=== PATIENT | female | born 1985 | race Caucasian/White ===

== ENCOUNTER → 2018-09-05 15:26 | Outpatient (REF) | payer OTHER, SELFPAY | LOC: LAB 15:26 | PROVIDERS: PCP Nurse Practitioner Family; Visit Provider Nurse Practitioner Family | DX: O23.40 Unspecified infection of urinary tract in pregnancy, unspecified trimester (principal) | CPT/HCPCS: 87086 ==

== ENCOUNTER → 2018-10-01 16:54 | Outpatient (REF) | payer BC, SELFPAY ==
[2018-10-01 18:45] LABS: Urine N gonorrhoeae NOT DETECTED
[2018-10-01 19:21] LABS: Urine Chlamydia NOT DETECTED
== END ==
LOC: LAB 16:54
PROVIDERS: PCP Nurse Practitioner Family; Visit Provider Obstetrics & Gynecology
DX: Z34.81 Encounter for supervision of other normal pregnancy, first trimester (principal)
CPT/HCPCS: 87491; 87591

== ENCOUNTER → 2018-10-10 11:11 | Outpatient (CLI) | payer BC, SELFPAY ==
[2018-10-10 11:54] LABS: Add Manual Diff / Slide Review NO; Basophils Absolute Auto 200 /uL (0-100); Basophils Percent Auto 2.9 % (0-2); Eosinophils Absolute Auto 100 /uL (0-450); Hematocrit 37.8 % (36-46); Hemoglobin 12.6 g/dL (12.0-16.0); Lymphocytes Absolute Auto 1200 /uL (1100-4500); Lymphocytes Percent Auto 15.5 % (25-40); Mean Corpuscular HGB Conc 33.4 % (30-36); Mean Corpuscular Hemoglobin 29.2 PG (26-34); Mean Corpuscular Volume 87.4 fL (80-100); Monocytes Absolute Auto 400 /uL (0-900); Neutrophils Absolute Auto 6000 /uL (1500-7000); Neutrophils Percent Auto 75.6 % (50-75); Platelet Count 256 X10^3/uL (150-400); Red Blood Cell Count 4.33 X10^6/uL (4.0-5.2)
[2018-10-10 13:06] LABS: Appearance Urine UA CLEAR; Bilirubin Urine UA NEGATIVE (NEGATIVE); Color Urine UA YELLOW; Glucose Urine UA NEGATIVE (Negative); Ketones Urine UA NEGATIVE (NEGATIVE); Leukocyte Esterase Urine UA NEGATIVE (NEGATIVE); Nitrite Urine UA NEGATIVE (Negative); Occult Blood Urine UA NEGATIVE (Negative); Protein Urine UA NEGATIVE (Negative); Urobilinogen Urine UA 0.2 E.U./dL (0.2)
[2018-10-10 15:53] LABS: Hepatitis B Surface Antigen NEGATIVE s/c (NEGATIVE)
[2018-10-10 16:12] LABS: HIV 1 and 2 Antibody NEGATIVE (NEGATIVE); Hep C Virus Ab w/Reflex Quant NEGATIVE s/c (NEGATIVE)
[2018-10-12 14:18] LABS: RPR Screen Nonreactive (Nonreactive)
== END ==
PROVIDERS: PCP Nurse Practitioner Family; Visit Provider Obstetrics & Gynecology
DX: Z34.81 Encounter for supervision of other normal pregnancy, first trimester (principal)
CPT/HCPCS: 36415; 80055; 81003; 86703; 86787; 86803; 86850; 86900; 86901; 87086

== ENCOUNTER → 2018-12-04 11:53 | Outpatient (CLI) | payer BC, SELFPAY ==
[2018-12-10 13:28] LABS: AFP, Serum 27.8 ng/mL; Calc Gestational Age 17.4; Est Date Determined by US; Maternal Weight 137 lbs; Number of Fetuses 1; Prev Pregnancies Down Syndrome N
== END ==
PROVIDERS: PCP Nurse Practitioner Family; Visit Provider Obstetrics & Gynecology
DX: Z34.82 Encounter for supervision of other normal pregnancy, second trimester (principal)
CPT/HCPCS: 36415; 82105

== ENCOUNTER → 2018-12-25 09:10 | Outpatient (CLI) | payer BC, SELFPAY ==
--- NOTE | 2018-12-25 09:11 | DI.US.S_ITS ---
PROCEDURE: US OB >= 14 WEEKS FETUS INDICATIONS: ANATOMY SURVEY OUTSIDE/PRIOR DATING DATA: Last menstrual period (LMP): 08/04/18. LMP-based estimated date of delivery (DESTINY): 05/11/19. First dating scan (date and location): 10/01/18. Estimated date of delivery (DESTINY) from first dating scan: 05/17/19. TECHNIQUE: Real-time scanning was performed of the fetus, with image documentation and biometric measurements. Endovaginal scanning: No COMPARISON: [facility], , OB <= 14 WEEKS FETUS, 10/30/2018, 10:05. FINDINGS: General: A single living intrauterine gestation is present. Presentation: Vertex. Placenta: Placental position is anterior, without previa. Amniotic fluid index: 13.9 cm, normal range is 5-24 cm. heart rate: 140 beats per minute. Maternal cervical canal: 4.2 cm long. Normal lower limit is 2.5 cm. biometrics: Biparietal diameter: 19 weeks 5 days Head circumference: 19 weeks 5 days Abdominal circumference: 20 weeks 5 days Femur length: 19 weeks 2 days Estimated gestational age from initial scan: 19 weeks 4 days Composite gestational age from present scan: 19 weeks 6 days Estimated weight and percentile: 325 g; 70 percentile Measurement variability for biometric dating: +/- 7 days from 14 weeks to 15 weeks 6 days gestation, +/- 10 days from 16 weeks to 21 weeks 6 days gestation, +/- 2 weeks from 22 weeks to 27 weeks 6 days gestation, +/- 3 weeks for 28 weeks gestation or later. weight reference: 4500 g or EFW >90/95% is considered macrosomia or large for gestational age. EFW <10% is small for gestational age. EFW 5% or less is considered intra-uterine growth restriction. Anatomic survey: Neuro: Ventricles are non-dilated at less than 10 mm. Cisterna magna is normal at 3-11 mm. Cerebellum is normal in size and morphology. Nuchal skin fold: Normal at less than 6 mm between 14-21 weeks gestational age. Face: Nose and lips, facial profile are normal. Spine: No evidence for spina bifida. Heart: 4-chambered heart is present, with normal ventricular outflow tracts. Left ventricular intracardiac foci. Diaphragm: Diaphragm is intact. Stomach: Left-sided stomach is present. Kidneys: No hydronephrosis. Normal is less than 5 mm in 2nd trimester, less than 7 mm in 3rd trimester. Cord: 3-vessel cord has orthotopic insertion. Bladder: Normal in size. Extremities: All 4 extremities identified. IMPRESSION: 1. Single living IUP redemonstrated and interval growth is normal. 2. Echogenic intracardiac focus: 1.4-1.8 fold likelihood of Down syndrome. If isolated finding, consider aneuploidy screening with cell-free DNA. If aneuploidy screen is negative, no further evaluation needed. Anatomic survey otherwise is normal. Dictated by: Antonio Berg [facility] Interpreted: Donell Harding MD on 12/25/2018 at 10:30 Approved by: Donell Harding M.D. on 12/25/2018 at 11:06
== END ==
PROVIDERS: PCP Nurse Practitioner Family; Visit Provider Obstetrics & Gynecology
DX: Z34.82 Encounter for supervision of other normal pregnancy, second trimester (principal); Z3A.19 19 weeks gestation of pregnancy
CPT/HCPCS: 76811

== ENCOUNTER → 2019-01-30 09:30 | Outpatient (CLI) | payer BC, SELFPAY ==
[2019-01-30 11:41] LABS: Hematocrit 36.7 % (36-46); Hemoglobin 12.6 g/dL (12.0-16.0)
[2019-01-30 11:56] LABS: GTT (PREG) 1 Hour PP 50gm Dose 69 mg/dL (76-139)
== END ==
PROVIDERS: PCP Nurse Practitioner Family; Visit Provider Obstetrics & Gynecology
DX: Z34.82 Encounter for supervision of other normal pregnancy, second trimester (principal)
CPT/HCPCS: 36415; 82950; 85014; 85018

== ENCOUNTER → 2019-04-08 17:38 | Outpatient (CLI) | payer BC, SELFPAY ==
[2019-04-09 15:25] LABS: Strep Grp B PCR NEG for Grp B Strep
== END ==
PROVIDERS: PCP Nurse Practitioner Family; Visit Provider Obstetrics & Gynecology
DX: Z36.85 Encounter for antenatal screening for Streptococcus B (principal); Z3A.35 35 weeks gestation of pregnancy
CPT/HCPCS: 87653

== ENCOUNTER 2019-05-01 07:00 | Inpatient (IN) | payer BC, SELFPAY ==
[2019-05-01] MEDS: LACTATED RINGERS 1,000 ML 1000 ML IV (07:55)
[2019-05-01 08:10] VITALS: BP 120/74
--- NOTE | 2019-05-01 08:22 | SUR.OPER ---
Supine on Padded OR bed, head on pillow, safety belt at thigh, arms secured on padded arm boards at <90 degrees abduction. Bump under right buttock. Legs uncrossed with pillow under knees, gel pad to heels, tape over blanket to lower legs.
[2019-05-01] MEDS: CITRIC ACID/SODIUM CITRATE 15 ML SOLUTION 30 ML PO (08:34)
[2019-05-01 08:52] LABS: Add Manual Diff / Slide Review NO; Basophils Absolute Auto 0 /uL (0-100); Basophils Percent Auto 0.4 % (0-2); Eosinophils Absolute Auto 200 /uL (0-450); Eosinophils Percent Auto 1.6 % (2-4); Hematocrit 34.4 % (36-46); Hemoglobin 11.8 g/dL (12.0-16.0); Lymphocytes Absolute Auto 1800 /uL (1100-4500); Lymphocytes Percent Auto 18.5 % (25-40); Mean Corpuscular HGB Conc 34.3 % (30-36); Mean Corpuscular Hemoglobin 29.1 PG (26-34); Mean Corpuscular Volume 84.9 fL (80-100); Monocytes Absolute Auto 600 /uL (0-900); Monocytes Percent Auto 6.2 % (3-14); Neutrophils Absolute Auto 7000 /uL (1500-7000); Neutrophils Percent Auto 73.3 % (50-75); Platelet Count 193 X10^3/uL (150-400); Red Blood Cell Count 4.05 X10^6/uL (4.0-5.2); Red Cell Distribution Width 12.7 % (11.6-14.8); White Blood Cell Count 9.5 X10^3/uL (4.5-11.0)
[2019-05-01] MEDS: LACTATED RINGERS 1,000 ML 100 ML IV ×2 (09:08→15:50)
[2019-05-01] MEDS: CEFAZOLIN 2 GM/100 ML FROZ.PIGGY IV (09:10)
--- NOTE | 2019-05-01 09:46 | SUR.OPER ---
CORD BLOOD AND PLACENTA TO L&D WITH BABY
--- NOTE | 2019-05-01 09:46 | SUR.OPER ---
FHTS PRIOR TO PREP 125 VIABLE MALE BORN 939, APGARS 9&9
[2019-05-01] MEDS: ACETAMINOPHEN IV 1,000 MG/100 ML VIAL 400 MG IV (10:05)
--- NOTE | 2019-05-01 10:07 | SUR.OPER ---
RECEIVED 1000 MG IV ACETOMINOPHEN BY ANESTHESIA AT 1005 UNABLE TO SCAN PATIENT ID
[2019-05-01 10:21] VITALS: BP 96/57; PULSE 76; RESP 22; TEMP 36.2; O2SAT 96
--- NOTE | 2019-05-01 10:25 | PM.PREOP ---
Pre-operative Note Interval Note History & Physical reviewed/Exam performed by Physician: Yes Changes to H&P: No
[2019-05-01 10:26] VITALS: BP 96/56; PULSE 76; RESP 12; O2SAT 93
--- NOTE | 2019-05-01 10:28 | PM.GYNOP.1 ---
Operative Date/Time/Diagnoses Date of procedure: 05/01/19 Time of procedure: 10:29 Pre-op diagnosis: 39 weeks gestation Previous C section x 2 Post-op diagnosis: same Procedure & Clinicians Procedure: Repeat C section Lysis of omental adhesions Indications: 39 weeks gestation Previous C section x 2 Surgeon: Zaida Radford [employer] Production Manager: Navid Bearden Anesthesia Type: Spinal (with Duramorph) Operative Notes Findings: Live male infant Omental to uterine adhesions Normal tubes and ovaries Normal uterus Closure Type: primary Specimen(s): other (Cord bloods, Placenta) Applied: catheter Estimated blood loss (mL): 300 Blood products transfused: none Procedure in detail: After informed consent was obtained, the patient was taken to the operating room where she was placed in the seated position. Spinal anesthesia with Duramorph was administered. The patient was then placed in the dorsal supine position with a leftward tilt. She was prepped and draped in the usual sterile fashion. A timeout was performed. After spinal analgesia was found to be adequate, a Pfannenstiel skin incision was made through the previous incision and carried through to the underlying layer fascia. The fascia was nicked in the midline, and the incision extended bilaterally with the Elizabeth scissors. The superior aspect of the fascial incision was grasped with a Madison clamps, elevated, and the underlying rectus muscles dissected off sharply and bluntly. Attention was then turned to the inferior aspect of this incision which in a similar fashion was grasped with a Kerry clamps, elevated, and the underlying rectus muscles dissected off sharply and bluntly. The rectus muscles were in the midline. The peritoneum was identified, grasped between 2 hemostats, and entered sharply with the Metzenbaum scissors. This incision was extended superiorly and inferiorly with good visualization of the bladder. The bladder blade was inserted. The vesicouterine peritoneum was identified, grasped with the pickup, and entered sharply with the Metzenbaum scissors. This incision was extended bilaterally, and the bladder flap was created digitally. The bladder blade was reinserted. The lower uterine segment was incised in a transverse fashion with the scalpel. Upon entering the amniotic sac there was moderate amount of clear amniotic fluid. The infant's head was delivered without difficulty. The nose and mouth were suctioned with bulb suction. The remainder of the body delivered without difficulty. The cord was double clamped and cut. The was handed off to waiting RN and RT. The placenta was delivered manually. The uterus was cleared of all clots and debris. The uterine incision was repaired with #1 chromic in a running interlocking fashion, and a second layer the same suture was used for an imbricating layer. Hemostasis was achieved. Omental to uterine adhesions were taken down with the Bovie and sharply with Metzenbaum scissors. The tubes and ovaries were examined and were found to be normal. The gutters were cleared of all clots and debris. The bladder flap was reapproximated using 2-0 Vicryl in a running fashion. The parietal peritoneum was closed using 2-0 Vicryl in a running fashion. The fascia was reapproximated using 0 Vicryl in a running fashion. The subcutaneous layer was copiously irrigated with warm normal saline. 5 simple interrupted sutures of 3-0 Vicryl were placed to reapproximate the subcutaneous layer. The skin was closed with 4-0 Biosyn in a subcuticular fashion. Steri-Strips were placed. An Aquacell dressing was placed. The uterus was expressed of a small amount of old blood. Sponge, lap, and instrument counts were correct x-2. The patient tolerated the procedure well, and was taken to PACU in stable condition. Complications: none Post-operative Condition: stable Disposition: PACU Plan for aftercare: To Center after PACU
[2019-05-01 10:31] VITALS: BP 95/60; PULSE 65; RESP 15; O2SAT 96
[2019-05-01 10:41] VITALS: BP 103/68; PULSE 66; RESP 12; O2SAT 96
--- NOTE | 2019-05-01 11:09 | SUR.PHASEI ---
1042 Report called to Sherry.
--- NOTE | 2019-05-01 11:09 | SUR.PHASEI ---
IV tubing changed prior to discharge
[2019-05-01] MEDS: NALBUPHINE 20 MG/ML AMPUL 5 MG IV (12:44)
[2019-05-01] MEDS: KETOROLAC 30 MG/ML VIAL IV ×2 (15:48→23:17)
[2019-05-02] MEDS: KETOROLAC 30 MG/ML VIAL IV (04:50)
[2019-05-02 05:48] LABS: Hematocrit 32.9 % (36-46); Hemoglobin 11.2 g/dL (12.0-16.0)
[2019-05-02] MEDS: IBUPROFEN 600 MG TABLET PO (19:13)
[2019-05-02] MEDS: ACETAMINOPHEN 325 MG TABLET 650 MG PO (19:13)
[2019-05-03] MEDS: IBUPROFEN 600 MG TABLET PO ×2 (00:56→06:55)
[2019-05-03] MEDS: ACETAMINOPHEN 325 MG TABLET 650 MG PO ×2 (00:56→06:55)
[2019-05-03 08:00] VITALS: BP 119/81; PULSE 79; RESP 17; TEMP 37.2
[2019-05-03] MEDS: DOCUSATE 250 MG CAPSULE PO (09:11)
[2019-05-03] MEDS: PRENATAL VIT,CALC/IRON/FOLIC 1 TABLET 1 TAB PO (09:11)
--- NOTE | 2019-05-03 10:25 | PM.OBPN.1 ---
Subjective - OB Subjective Patient comments: no complaints and pain well controlled baby status: doing well and nursing well feeding status: exclusively breast feeding Date Patient Seen: 05/02/19 Time Patient Seen: 08:45 Exam Vital Signs (past 8 hours): Generally: Patient is sitting up in bed, nursing infant, no acute distress Lungs: Clear to auscultation bilaterally Cardiovascular: Regular rate and rhythm Fundal height: U -2 Incision: Clean dry and intact with Aquacel dressing Extremities: Negative Homans, no edema Objective Labs Result Diagrams: 05/02/19 04:50 Assessment & Plan Plan day: 1 plan OB: routine postop care Time Spent With Patient Time: Total time spent is greater than 50% in coordination of care (as documented) at patient's floor/unit and/or counseling patient: Time with patient: 15-24 minutes
--- NOTE | 2019-05-03 10:27 | PM.OBDS.1 ---
Discharge Providers Provider Date of admission: 05/01/19 07:00 Discharge Date: 05/03/19 Primary care physician: LEBRON Raza Consults: 05/01/19 11:05 Consult to Accounting System Expert Routine Comment: Discharge provider: Zaida Radford MD Summary Hospital Course Date Patient Seen: 05/03/19 Time Patient Seen: 10:27 Hospital Course: Patient is a 33-year-old 3 para 3 post op day # 2 status post repeat low-transverse section She had no complications with the procedure or her postoperative course. Peripartum Data Episiotomy description: None Procedures: Repeat low-transverse section Spinal anesthesia complications: none Status at Discharge Cognitive/behavioral status at discharge: oriented Functional status at discharge: independent ambulation Overall status at discharge: patient is progressing back to baseline Time Spent with Patient Time attestation: Total time spent providing and/or coordinating discharge services: Time spent: Less than 30 minutes Objective Labs Result Diagrams: 05/02/19 04:50 Discharge Plan Discharge Med Rec/Prescriptions Prescriptions: No Action No Known Home Medications RF: 0 Follow up/Referrals: Delia Cid ARNP [Primary Care Provider] - Discharge Orders: Discharge (Order); Ordered 05/03/19 Ordered By: Zaida Radford Discharge Data Primary Care Provider: Delia Cid
== END 2019-05-03 11:40 | disposition home or self-care (01) | DRG 788 ==
PROVIDERS: Admitting Provider Obstetrics & Gynecology; PCP Nurse Practitioner Family; Visit Provider Obstetrics & Gynecology
PROC: 10D00Z1 Extraction of Products of Conception, Low, Open Approach (ICD-10-PCS; CPT 59514; principal; 2019-05-01 09:00)
DX: O34.219 Maternal care for unspecified type scar from previous cesarean delivery (principal); Z3A.39 39 weeks gestation of pregnancy; Z37.0 Single live birth; K66.0 Peritoneal adhesions (postprocedural) (postinfection)
CPT/HCPCS: 36415; 59050; 59510; 59514; 85014; 85018; 85025; 86850; 86900; 86901; G0379; J0131; J0171; J0690; J1885; J2274; J2300; J2405; J2590; J2765

== ENCOUNTER → 2020-09-21 15:53 | Outpatient (CLI) | payer BC, SELFPAY ==
[2020-09-24 04:14] LABS: Chlamydia trachomatis NAA Negative (Negative); Neisseria gonorrhoeae NAA Negative (Negative)
== END ==
PROVIDERS: Visit Provider Obstetrics & Gynecology
DX: Z34.81 Encounter for supervision of other normal pregnancy, first trimester (principal)
CPT/HCPCS: 87086; 87491; 87591

== ENCOUNTER → 2020-10-12 08:21 | Outpatient (CLI) | payer BC, SELFPAY | PROVIDERS: Referring Provider Obstetrics & Gynecology; Visit Provider Obstetrics & Gynecology | DX: Q93.81 Velo-cardio-facial syndrome (principal); Z36.0 Encounter for antenatal screening for chromosomal anomalies | CPT/HCPCS: 36415; 81420 ==

== ENCOUNTER → 2020-10-26 08:40 | Outpatient (CLI) | payer BC, SELFPAY ==
[2020-10-26 09:54] LABS: Add Manual Diff / Slide Review NO; Basophils Absolute Auto 0 /uL (0-100); Basophils Percent Auto 0.6 % (0-2); Eosinophils Absolute Auto 100 /uL (0-450); Eosinophils Percent Auto 1.5 % (2-4); Hematocrit 39.4 % (36-46); Hemoglobin 13.7 g/dL (12.0-16.0); Lymphocytes Absolute Auto 1500 /uL (1100-4500); Lymphocytes Percent Auto 18.3 % (25-40); Mean Corpuscular HGB Conc 34.7 % (30-36); Mean Corpuscular Hemoglobin 30.7 PG (26-34); Mean Corpuscular Volume 88.5 fL (80-100); Monocytes Absolute Auto 400 /uL (0-900); Neutrophils Absolute Auto 6100 /uL (1500-7000); Neutrophils Percent Auto 74.6 % (50-75); Platelet Count 233 X10^3/uL (150-400); Red Blood Cell Count 4.45 X10^6/uL (4.0-5.2); Red Cell Distribution Width 12.9 % (11.6-14.8); White Blood Cell Count 8.2 X10^3/uL (4.5-11.0)
[2020-10-26 11:22] LABS: Hepatitis B Surface Antigen NEGATIVE s/c (NEGATIVE); Rubella Antibody IgG 83.3 IU/mL (>15)
[2020-10-26 12:01] LABS: HIV 1 & 2 Ab/Ag 4th Gen Combo NEGATIVE (NEGATIVE); Hep C Virus Ab w/Reflex Quant NEGATIVE s/c (NEGATIVE)
[2020-10-27 07:34] LABS: Varicella IgG Antibody 520 index (Immune >165)
[2020-10-27 08:30] LABS: RPR Screen Non Reactive (Non Reactive)
== END ==
PROVIDERS: Referring Provider Obstetrics & Gynecology; Visit Provider Obstetrics & Gynecology
DX: Q93.81 Velo-cardio-facial syndrome (principal); Z36.0 Encounter for antenatal screening for chromosomal anomalies
CPT/HCPCS: 36415; 80055; 81420; 86787; 86803; 86850; 86900; 86901; 87389

== ENCOUNTER → 2020-11-29 10:22 | Outpatient (CLI) | payer BC, SELFPAY ==
[2020-12-01 22:02] LABS: AFP Value 29.6 ng/mL (.); Gest Age on Col Date 17.3 weeks (.); Gestational Age EDD (.); Insulin Dep Diabetes No (.); OSBR Risk 1IN 10000 (.); Results Report (.); Test Results *Screen Negative* (.)
== END ==
PROVIDERS: Referring Provider Obstetrics & Gynecology; Visit Provider Obstetrics & Gynecology
DX: Z34.82 Encounter for supervision of other normal pregnancy, second trimester (principal); Z3A.17 17 weeks gestation of pregnancy
CPT/HCPCS: 36415; 82105

== ENCOUNTER → 2020-12-22 10:11 | Outpatient (CLI) | payer BC, SELFPAY ==
--- NOTE | 2020-12-22 10:11 | DI.US.S_ITS ---
PROCEDURE: US OB >= 14 WEEKS FETUS INDICATIONS: ANATOMY OUTSIDE/PRIOR DATING DATA: Last menstrual period (LMP): 07/22/20 LMP-based estimated date of delivery (DESTINY): 04/28/20 First dating scan (date and location): 09/21/20 Estimated date of delivery (DESTINY) from first dating scan: 05/07/21 TECHNIQUE: Real-time scanning was performed of the fetus, with image documentation and biometric measurements. Endovaginal scanning: Not performed COMPARISON: [facility], , OB <= 14 WEEKS FETUS, 11/03/2020, 9:21. [facility], PELVIC COMPLETE, 10/06/2020, 12:02. [facility], OB >= 14 WEEKS FETUS, 09/21/2020, 15:24. FINDINGS: General: A single living intrauterine gestation is present. Presentation: Breech. Placenta: Placental position is posterior/fundal , without previa. Amniotic fluid index: 12.8 cm, normal range is 5-24 cm. heart rate: 149 beats per minute. Maternal cervical canal: 3.3 cm long. Normal lower limit is 2.5 cm. biometrics: Biparietal diameter: 4.6 cm, 19 weeks 5 days Head circumference: 17.5 cm, 20 weeks 0 days Abdominal circumference: 16.3 cm, 21 weeks 3 days Femur length: 3.4 cm, 20 weeks 5 days Estimated gestational age from initial scan: 20 weeks 4 days Composite gestational age from present scan: 20 weeks 3 days Estimated weight and percentile: 384 g, 63rd percentile Measurement variability for biometric dating: +/- 7 days from 14 weeks to 15 weeks 6 days gestation, +/- 10 days from 16 weeks to 21 weeks 6 days gestation, +/- 2 weeks from 22 weeks to 27 weeks 6 days gestation, +/- 3 weeks for 28 weeks gestation or later. weight reference: 4500 g or EFW >90/95% is considered macrosomia or large for gestational age. EFW <10% is small for gestational age. EFW 5% or less is considered intra-uterine growth restriction. Anatomic survey: Neuro: Ventricles are non-dilated at less than 10 mm. Cisterna magna is normal at 3-11 mm. Cerebellum is normal in size and morphology. Nuchal skin fold: Normal at less than 6 mm between 14-21 weeks gestational age. Face: Nose and lips, facial profile are normal. Spine: No evidence for spina bifida. Heart: 4-chambered heart is present, with normal ventricular outflow tracts. Diaphragm: Diaphragm is intact. Stomach: Left-sided stomach is present. Kidneys: No hydronephrosis. Normal is less than 5 mm in 2nd trimester, less than 7 mm in 3rd trimester. Cord: 3-vessel cord has orthotopic insertion. Bladder: Normal in size. Extremities: All 4 extremities identified. IMPRESSION: Single living intrauterine fetus in breech presentation. Expected interval growth. Normal anatomic survey Approved by: Subhash Mello M.D. on 12/22/2020 at 16:09
== END ==
PROVIDERS: Referring Provider Obstetrics & Gynecology; Visit Provider Obstetrics & Gynecology
DX: Z34.82 Encounter for supervision of other normal pregnancy, second trimester (principal); Z3A.20 20 weeks gestation of pregnancy
CPT/HCPCS: 76811

== ENCOUNTER → 2021-01-25 15:54 | Outpatient (CLI) | payer BC, SELFPAY ==
[2021-01-25 21:51] LABS: Urine N gonorrhoeae NOT DETECTED
[2021-01-25 22:19] LABS: Urine Chlamydia NOT DETECTED
== END ==
PROVIDERS: Visit Provider Obstetrics & Gynecology
DX: Z34.82 Encounter for supervision of other normal pregnancy, second trimester (principal); Z3A.25 25 weeks gestation of pregnancy
CPT/HCPCS: 87491; 87591

== ENCOUNTER → 2021-02-09 07:12 | Outpatient (CLI) | payer BC, SELFPAY ==
[2021-02-09 09:40] LABS: Hematocrit 38.4 % (36-46); Hemoglobin 13.1 g/dL (12.0-16.0)
[2021-02-09 10:01] LABS: GTT (PREG) 1 Hour PP 50gm Dose 114 mg/dL (76-139)
== END ==
PROVIDERS: Referring Provider Obstetrics & Gynecology; Visit Provider Obstetrics & Gynecology
DX: Z34.82 Encounter for supervision of other normal pregnancy, second trimester (principal); Z3A.21 21 weeks gestation of pregnancy
CPT/HCPCS: 36415; 82950; 85014; 85018

== ENCOUNTER 2021-03-28 12:16 | Outpatient (CLI) | payer BC, SELFPAY | END 2021-03-28 13:22 | disposition home or self-care (01) | LOC: LABOR 12:47 → OB 03-29 06:57 | PROVIDERS: Referring Provider Obstetrics & Gynecology; Visit Provider Obstetrics & Gynecology | DX: O36.8130 Decreased fetal movements, third trimester, not applicable or unspecified (principal); Z3A.34 34 weeks gestation of pregnancy | CPT/HCPCS: 59025; G0378; G0379 ==

== ENCOUNTER 2021-03-30 16:11 | Outpatient (CLI) | payer BC, SELFPAY | END 2021-03-30 17:05 | disposition home or self-care (01) | LOC: OB 04-01 07:06 | PROVIDERS: Referring Provider Obstetrics & Gynecology; Visit Provider Obstetrics & Gynecology | DX: O47.03 False labor before 37 completed weeks of gestation, third trimester (principal); Z3A.34 34 weeks gestation of pregnancy | CPT/HCPCS: 59025; G0378; G0379 ==

== ENCOUNTER → 2021-04-18 09:47 | Outpatient (CLI) | payer BC, SELFPAY ==
[2021-04-19 11:21] LABS: Strep Grp B PCR NEG for Grp B Strep
== END ==
PROVIDERS: Visit Provider Obstetrics & Gynecology
DX: Z34.83 Encounter for supervision of other normal pregnancy, third trimester (principal); Z3A.37 37 weeks gestation of pregnancy
CPT/HCPCS: 87653

== ENCOUNTER → 2021-05-04 11:36 | Outpatient (CLI) | payer BC, SELFPAY ==
[2021-05-04 12:30] LABS: COVID19 -Nasal RAPID Negative (Negative)
== END ==
PROVIDERS: Visit Provider Specialist
DX: Z01.812 Encounter for preprocedural laboratory examination (principal); Z20.822 Contact with and (suspected) exposure to COVID-19
CPT/HCPCS: 87635

== ENCOUNTER 2021-05-05 05:51 | Inpatient (IN) | payer BC, SELFPAY ==
[2021-05-05] VITALS (7 sets, daily range): BP systolic 98–111; BP diastolic 51–72; PULSE 58–68; RESP 11–13; TEMP 36.1–36.8; O2SAT 96–98
--- NOTE | 2021-05-05 | PATH_ITS ---
[facility] Accession Number: [id number] . 01 Material submitted: . thigh - LEFT THIGH LESION . 01 Clinical history: . REPEAT . 01 Diagnosis: Left Thigh, Excision: Irritated dermatofibroma. MRV 05/09/2021 1623 Local . 01 Electronically signed: . Leela Gilman MD, Dermatopathologist NPI- [id number] . 01 Gross description: . Received in formalin and labeled with left thigh lesion is one piece of a segment of skin measuring 1.0 x 0.8 x 0.3 cm. The segment is inked, serially sectioned into five slices, and entirely submitted in cassettes A1 and A2, with tips in cassette A1 and the remaining three slices in cassette A2. ([id number]) /MRV 05/06/2021 0936 Local . 01 Pathologist provided ICD-10: D23.9 . 01 CPT . 027357 Performed at: 01 [facility] [address] [place] [address] [address], [place], [place] [id number] MD Barrie Colin MD Phone: [phone]
[2021-05-05] MEDS: LACTATED RINGERS 1,000 ML 100 ML IV ×3 (06:30→10:12)
--- NOTE | 2021-05-05 07:43 | PM.HP.1 ---
History of Present Illness History of Present Illness Date Patient Seen: 05/05/21 Time Patient Seen: 07:43 Chief complaint: REPEAT Narrative: Patient is a 35-year-old 5 para 3 who presents for a repeat section at 39 weeks gestation. She has had an uncomplicated . Patient History Medical History (Updated 09/13/20 @ 10:30 by Saima Elder RN) HSV-1 (herpes simplex virus 1) infection Mammogram normal Migraine PIH ( induced hypertension) (~2010) Surgical History (Updated 09/13/20 @ 10:30 by Saima Elder RN) S/P appendectomy S/P knee surgery S/P repeat low transverse (~2018) S/P tonsillectomy and adenoidectomy Status post delivery (~2010) Status post repeat low transverse section (~2012) Family & Social History Family History (Updated 09/13/20 @ 13:21 by Saima Elder RN) Mother Autoimmune disorder Father Hypertension Grandmother Hypertension Sepsis Grandfather Hypertension Diabetes mellitus Myocardial infarction Grandmother Alzheimer disease Grandfather Hypertension Myocardial infarction Family/Other Breast cancer Family/Other Hypothyroid Sister PCOS (polycystic ovarian syndrome) Social History: household members spouse,children lives independently Yes Tobacco & Substance use: Smoking Status Never smoker alcohol intake former Meds Home Medications and Allergies Home Medications Medication Instructions Recorded Confirmed Type prenat.vits,cassie,oqw-gfmb-yiyqt 1 tab PO DAILY 09/13/20 04/26/21 History Allergies Allergy/AdvReac Type Severity Reaction Status Date / Time No Known Drug Allergies Allergy Verified 04/26/21 13:59 Exam Vital Signs (past 8 hours): - 05/05/21 06:15 Blood Pressure 111/72 Narrative Exam Narrative: HEENT: No thyromegaly, no anterior cervical or supraclavicular lymphadenopathy. Lungs:Clear to auscultation bilaterally, no wheezes. Cardiovascular: Regular rate and rhythm, no murmurs, rubs, or gallops. Abdomen: Well-healed Pfannenstiel scars. No hepatosplenomegaly. No masses palpable. Extremities: No edema Assessment & Plan Assessment & Plan narrative: Assessment: 35-year-old 5 para 3 at 39 weeks gestation with 3 prior sections Plan: Repeat low-transverse section COVID-19 COVID-19 status: Negative Result date/Date tested (Pos, Neg/Pending): 05/04/21 Time Spent With Patient Time with patient: less than 30 minutes Critical Care time: I spent a total of [] minutes of critical care time on this patient's care today; this time is exclusive of procedural time.
--- NOTE | 2021-05-05 07:45 | PM.PREOP ---
Pre-operative Note COVID-19 COVID-19 status: Negative Result date/Date tested (Pos, Neg/Pending): 05/04/21 Interval Note History & Physical reviewed/Exam performed by Physician: Yes Changes to H&P: No H&P completed within 30 days and has changed as indicated here:: 05/05/21
[2021-05-05] MEDS: CEFAZOLIN 1 GM VIAL 2 GM IV (08:10)
--- NOTE | 2021-05-05 08:31 | SUR.OPER ---
Viable female delivered by section at 08:24. Cord blood vials x2 and placenta sent with L&D RN.
--- NOTE | 2021-05-05 09:17 | P.OP_ITS ---
Operative Date/Time/Diagnoses Date of procedure: 05/05/21 Time of procedure: 09:17 Pre-op diagnosis: Three previous C-sections 39 weeks gestation Left thigh lesion Post-op diagnosis: same Procedure & Clinicians Procedure: Repeat low-transverse section Excision of left thigh lesion Same procedure as scheduled: Yes Indications: 39 weeks gestation Three previous sections Left thigh lesion Surgeon: Zaida Radford Programming Development Project Manager: Hector Ochoa Anesthesia Type: Spinal (With Duramorph) Operative Notes Findings: Live female in the LANA presentation Normal uterus, tubes, and ovaries 5 mm raised erythematous left thigh lesion Closure Type: primary Specimen(s): cord blood, placenta and other (Left thigh lesion) Intraoperative meds administered: Duramorph, Ketorolac and Pitocin Applied: Catheter Estimated Blood Loss (mL): 300 Blood products transfused: none Procedure in detail: The patient was taken to the operating room where she was placed in the seated position. Spinal anesthesia with Duramorph was administered. The patient was then placed in the dorsal supine position with a leftward tilt. She was prepped and draped in the usual sterile fashion. A timeout was performed. After spinal analgesia was found to be adequate, a Pfannenstiel skin incision was made through the previous incision and carried through to the underlying layer fascia. The fascia was nicked in the midline, and the incision extended bilaterally with the Elizabeth scissors. The superior aspect of the fascial incision was grasped with a Kerry clamps, elevated, and the underlying rectus muscles dissected off sharply and bluntly. Attention was then turned to the inferior aspect of this incision which in a similar fashion was grasped with a Kerry clamps, elevated, and the underlying rectus muscles dissected off sharply and bluntly. The rectus muscles were in the midline. The peritoneum was identified, grasped between 2 hemostats, and entered sharply with the Metzenbaum scissors. This incision was extended superiorly and inferiorly with good visualization of the bladder. The bladder blade was inserted. The vesicouterine peritoneum was identified, grasped with the pickup, and entered sharply with the Metzenbaum scissors. This incision was extended bilaterally, and the bladder flap was created digitally. The bladder blade was reinserted. The lower uterine segment was incised in a transverse fashion with the scalpel. Upon entering the amniotic sac there was moderate amount of clear amniotic fluid. The 's head was delivered with vacuum assistance. The nose and mouth were suctioned with bulb suction. The remainder of the body delivered without difficulty. The cord was double clamped and cut. The was handed off to waiting RN and RT. The placenta was delivered manually. The uterus was cleared of all clots and debris. The uterine incision was repaired with #1 chromic in a running interlocking fashion, and a second layer the same suture was used for an imbricating layer. Hemostasis was achieved. The tubes and ovaries were examined and were found to be normal. The gutters were cleared of all clots and debris. The bladder flap was reappr oximated using 2-0 Vicryl in a running fashion. The parietal peritoneum was closed using 2-0 Vicryl in a running fashion. The fascia was reapproximated using 0 Vicryl in a running fashion. The subcutaneous layer was copiously irrigated with warm normal saline. 5 simple interrupted sutures of 3-0 Vicryl were placed to reapproximate the subcutaneous layer. The skin was closed with 4-0 undyed Vicryl in a subcuticular fashion. Steri-Strips were placed. An Aquacell dressing was placed. The uterus was expressed of a small amount of old blood. Sponge, lap, and instrument counts were correct x-2. The patient tolerated the procedure well, and was taken to PACU in stable condition. Complications: none [place] Baby 1: Infant Gender: Female Presentation: vertex Position: Left Occiput Anterior Placental Delivery Description: Spontaneous Cord Vessel Description: 3 Vessels and Clamped/Cut score (1 min): 8 score (5 min): 9 weight: 7 lb 9 oz Post-operative Condition: stable Disposition: PACU Aftercare: routine postop
--- NOTE | 2021-05-05 09:37 | SUR.PHASEI ---
0932 Patient transferred to [facility] in bed by Adeola RAWLS. Fundal check prior to transferred. Jeanie pad not changed so [facility] Rn can see drainage amount. Pt tolerating ice chips. Report called to Candice RAWLS
[2021-05-05 09:45] LABS: Add Manual Diff / Slide Review NO; Basophils Absolute Auto 0 /uL (0-100); Basophils Percent Auto 0.5 % (0-2); Eosinophils Absolute Auto 100 /uL (0-450); Eosinophils Percent Auto 1.2 % (2-4); Hemoglobin 13.3 g/dL (12.0-16.0); Lymphocytes Absolute Auto 1700 /uL (1100-4500); Mean Corpuscular HGB Conc 33.2 % (30-36); Mean Corpuscular Hemoglobin 30.2 PG (26-34); Monocytes Absolute Auto 600 /uL (0-900); Monocytes Percent Auto 5.4 % (3-14); Neutrophils Absolute Auto 8300 /uL (1500-7000); Neutrophils Percent Auto 76.9 % (50-75); Platelet Count 190 X10^3/uL (150-400); Red Cell Distribution Width 13.3 % (11.6-14.8); White Blood Cell Count 10.8 X10^3/uL (4.5-11.0)
[2021-05-05] MEDS: KETOROLAC 30 MG/ML VIAL IV ×2 (14:51→20:45)
[2021-05-06] MEDS: ACETAMINOPHEN 325 MG TABLET 650 MG PO ×2 (03:31→10:05)
[2021-05-06] MEDS: KETOROLAC 30 MG/ML VIAL IV (03:31)
[2021-05-06 07:06] LABS: Hematocrit 39.4 % (36-46)
[2021-05-06] MEDS: DOCUSATE 100 MG CAPSULE 200 MG PO (10:06)
[2021-05-06] MEDS: IBUPROFEN 600 MG TABLET PO ×2 (10:06→16:11)
[2021-05-06] MEDS: PRENATAL VIT,CALC/IRON/FOLIC 1 TABLET 1 TAB PO (10:06)
--- NOTE | 2021-05-06 20:01 | PM.OBPN.1 ---
Subjective - OB Subjective Patient comments: no complaints, pain well controlled, tolerating diet and flatus present baby status: doing well and nursing well [place] feeding status: exclusively breast feeding Date Patient Seen: 05/06/21 Time Patient Seen: 13:30 Exam Vital Signs (past 8 hours): Oxygen Delivery Method Room Air Narrative Exam Narrative: Generally: A well-developed, well-nourished female sitting up in bed Lungs: CTA bilat CV: RRR ABD: fundus firm U-1 Incision: CDI with Aquacel Ext: no edema, neg Isi's Objective Labs Result Diagrams: 05/06/21 06:35 Labs: Laboratory Results - last 24 hr 05/06/21 06:35 Hgb 13.0 Hct 39.4 Assessment & Plan Plan day: 1 plan OB: routine postop care Time Spent With Patient Time: Total time spent is greater than 50% in coordination of care (as documented) at patient's floor/unit and/or counseling patient: Time with patient: less than 15 minutes
[2021-05-07] MEDS: LANOLIN OINT 7 GM 1 APPLIC TOP (00:23)
[2021-05-07] MEDS: IBUPROFEN 600 MG TABLET PO (00:24)
[2021-05-07 08:59] VITALS: BP 110/80; PULSE 80; RESP 17; TEMP 37
--- NOTE | 2021-05-07 09:24 | P.DS_ITS ---
Discharge Providers Provider Date of admission: 05/05/21 05:51 Discharge Date: 05/07/21 Primary care physician: Doctor Baldomero MD Consults: 05/05/21 09:32 Consult to Fuel Cell Repairer Routine Comment: Discharge provider: Elisha Jarrett MD Summary Hospital Course Date Patient Seen: 05/07/21 Time Patient Seen: 09:24 Diagnoses: 39 week gestation for repeat section Hospital Course: Patient underwent a repeat low-transverse section on 05/05/2021. Patient is urinating well, ambulatory, tolerating regular diet, passing gas, pain is under control. Patient is Without difficulty. No headaches, scotomata, epigastric pain. Peripartum Data Infant Delivery Method: Section ( 4Th repeat) complications: none [place] 1: Gender: Female Disposition of : home Discharge Diagnosis (1) Delivery by section of full-term infant: Status: Acute Status at Discharge Cognitive/behavioral status at discharge: oriented Functional status at discharge: independent ambulation Overall status at discharge: patient is progressing back to baseline Time Spent with Patient Time attestation: Total time spent providing and/or coordinating discharge services: Time spent: Less than 30 minutes Objective Labs Result Diagrams: 05/06/21 06:35 Exam Vital Signs (past 8 hours): - 05/07/21 08:59 Temperature 98.6 F Pulse Rate 80 Respiratory Rate 17 Blood Pressure 110/80 Oxygen Delivery Method Room Air Narrative Exam Narrative: Abdomen is soft, nontender. Uterus is firm, at U, nontender. Dressing is clean, dry, intact. Normal lochia. Extremities without edema and nontender. Patient is AB-positive, rubella immune. The patient received Tdap in the 3rd trimester Discharge Plan Discharge Plan Patient Disposition: Home Provider Discharge Comment: Call with fever, chills, or redness or drainage around the incision Call with bleeding more than a pad in an hour Tylenol 650 mg every 6 hours as needed Ibuprofen 600 mg every 6 hours as needed Discharge orders & Medications Prescriptions: New oxycodone 5 mg tablet 5 mg PO Q4H PRN (Reason: pain) Qty: 20 RF: 0 Continued prenat.vits,cassie,[id number] Tablet 1 tab PO DAILY RF: 0 Follow up/Referrals: Zaida Radford MD [Physician] - 1 Week (Please call Dr. Karen dumont on Wednesday 05/09 to schedule a one week aquacel dresing removal. ) Diet/Activity/Treatments Diet: Regular Activity: No heavy lifting Skin/Wound/Dressing Care Report to your healthcare provider any signs of infection, such as:: chills, fever, increased pain, unusual drainage and unusual redness Dressing: Do not remove Visit Report/Discharge Packet Instructions: DI for , DI for Prescription Opioid Use Discharge Data Primary Care Provider: Miscellaneous,Doctor
== END 2021-05-07 10:20 | disposition home or self-care (01) | DRG 788 ==
PROVIDERS: Admitting Provider Obstetrics & Gynecology; Referring Provider Obstetrics & Gynecology; Visit Provider Obstetrics & Gynecology
PROC: 10D00Z1 Extraction of Products of Conception, Low, Open Approach (ICD-10-PCS; CPT 59514; principal; 2021-05-05 07:45)
DX: O34.211 Maternal care for low transverse scar from previous cesarean delivery (principal); Z3A.39 39 weeks gestation of pregnancy; Z37.0 Single live birth; D23.72 Other benign neoplasm of skin of left lower limb, including hip
CPT/HCPCS: 36415; 59050; 59510; 59514; 85014; 85018; 85025; J0690; J1885; J2274; J2590

== ENCOUNTER → 2021-05-24 12:10 | Outpatient (CLI) | payer BC, SELFPAY ==
--- NOTE | 2021-05-24 | DI.RAD.S_ITS ---
PROCEDURE: XR ELBOW LT MIN 3V INDICATIONS: LEFT ELBOW TRAUMA TECHNIQUE: 3 views of the elbow were acquired. COMPARISON: None. FINDINGS: Bones: No fractures or dislocations. No suspicious bony lesions. Soft tissues: No elbow joint effusion. No suspicious soft tissue calcifications. IMPRESSION: Left elbow without acute fracture or dislocation. If there is persistent clinical concern for occult fracture given adequate mechanism of injury, consider repeat imaging in 10-14 days. Dictated by: Dimitri Tompkins M.D. on 05/24/2021 at 15:12 Approved by: Dimitri Tompkins M.D. on 05/24/2021 at 15:13
== END ==
PROVIDERS: Referring Provider Family Medicine; Visit Provider Family Medicine
DX: S59.902A Unspecified injury of left elbow, initial encounter (principal); X58.XXXA Exposure to other specified factors, initial encounter
CPT/HCPCS: 73080

== ENCOUNTER → 2024-08-06 12:35 | Outpatient (CLI) | payer OTHER, SELFPAY | PROVIDERS: Visit Provider Physician Assistant | DX: J02.9 Acute pharyngitis, unspecified (principal) | CPT/HCPCS: 87070 ==

== ENCOUNTER 2024-08-10 19:00 | Emergency (ER) | payer OTHER, SELFPAY ==
[2024-08-10 19:16] VITALS: BP 122/77; PULSE 78; RESP 14; TEMP 36.6; O2SAT 99; BMI 24.0
--- NOTE | 2024-08-10 19:36 | ED.WOUNDLAC ---
HPI - Wound/Laceration General Chief Complaint: Wound/Laceration Stated Complaint: finger laceration Time Seen by Provider: 08/10/24 19:29 Source: patient Mode of arrival: Family Vehicle History of Present Illness HPI narrative: 38-year-old female who is right-hand dominant who is here for evaluation of a cut to her right index finger. It occurred on a can just prior to arrival. She states she tried to stop the bleeding at home but he was unable to do so. Related Data Home Medications Medication Instructions Recorded Confirmed prenat.vits,cassie,[id number] 1 tab PO DAILY 09/13/20 08/06/24 Previous Rx's Medication Instructions Recorded citalopram 10 mg tablet (Celexa) 10 mg PO DAILY #30 tabs 05/12/21 hydroxyzine HCl 25 mg tablet 25 mg PO TID PRN 05/12/21 anxiety #20 tabs norethindrone (contraceptive) 0.35 0.35 mg PO DAILY #84 tabs 08/08/21 mg tablet (Ortho Micronor) amoxicillin 500 mg tablet 500 mg PO Q12H #20 tabs 08/06/24 Allergies Allergy/AdvReac Type Severity Reaction Status Date / Time No Known Drug Allergies Allergy Verified 08/06/24 12:09 Review of Systems Musculoskeletal Musculoskeletal: Reports system reviewed and no additional complaints, except as documented Integumentary/Breasts Skin/Breast: Reports system reviewed and no additional complaints, except as documented Neurologic Neurologic: Reports system reviewed and no additional complaints, except as documented Patient History Medical History Mammogram normal Migraine 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) Surgical History (Updated 09/13/20 @ 10:30 by Saima Elder RN) S/P tonsillectomy and adenoidectomy S/P appendectomy S/P knee surgery S/P repeat low transverse (~2018) Status post repeat low transverse section (~2012) Status post delivery (~2010) Family History (Updated 09/13/20 @ 13:21 by Saima Elder RN) Mother Autoimmune disorder Father Hypertension Grandmother Hypertension Sepsis Grandfather Hypertension Diabetes mellitus Myocardial infarction Grandmother Alzheimer disease Grandfather Hypertension Myocardial infarction Family/Other Breast cancer Family/Other Hypothyroid Sister PCOS (polycystic ovarian syndrome) Social History marital status: number of children: 3 household members: spouse and children lives independently: Yes pets and animals: Yes (X 3 dogs ) education level: college 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[employer] ) current occupational exposures/hazards: Yes special yudy needs: No Smoking Status: Never smoker second hand exposure: No alcohol intake: former (pre- : very rare/occasionally) substance use type: does not use Smoking Status: Never smoker Exam Initial Vital Signs Initial Vital Signs: Vital Signs Temperature 97.8 F 08/10/24 19:16 Pulse Rate 78 08/10/24 19:16 Respiratory Rate 14 08/10/24 19:16 Blood Pressure 122/77 08/10/24 19:16 Pulse Oximetry 99 08/10/24 19:16 Oxygen Delivery Method Room Air 08/10/24 19:16 Skin Other: 1 cm total length irregular cut to the tip of the right index finger. Procedures Laceration Repair Laceration 1: Site: other (Index finger) Side (If applicable): right Size (cm): 1 Description: irregular Depth: simple, single layer Skin layer closed with: dermabond Course Vital Signs Vital signs: Vital Signs - 8 hr 08/10/24 19:16 Temperature 97.8 F Pulse Rate 78 Respiratory Rate 14 Blood Pressure 122/77 Pulse Oximetry 99 Oxygen Delivery Method Room Air MDM - Wound/Laceration MDM Narrative Medical decision making narrative: Superficial wound that does not involve the nail. Closed with Dermabond and Steri-Strips. Patient was given care instructions and return precautions. She expressed understanding and agreement. Discharge Plan Departure Patient Disposition: Home Clinical Impression: Laceration Instructions: DI for Laceration Repair Activity Restrictions/Additional Instructions: You can wash your hands like normal however do not soak your hands and anything for the next 5-7 days. Return to the emergency department for new or worsening symptoms. Prescriptions: No Action amoxicillin 500 mg tablet 500 mg PO Q12H Qty: 20 0RF norethindrone (contraceptive) [Ortho Micronor] 0.35 mg tablet 0.35 mg PO DAILY Qty: 84 3RF prenat.vits,cassie,[id number] Tablet 1 tab PO DAILY citalopram [Celexa] 10 mg tablet 10 mg PO DAILY Qty: 30 6RF hydroxyzine HCl 25 mg tablet 25 mg PO TID PRN (Reason: anxiety) Qty: 20 0RF Referrals: Miscellaneous,Doctor, MD [Primary Care Provider] - Stand Alone Forms: Patient Portal/API/Survey
== END 2024-08-10 19:40 | disposition home or self-care (01) ==
PROVIDERS: Emergency Provider Emergency Medicine
DX: S61.210A Laceration without foreign body of right index finger without damage to nail, initial encounter (principal); W26.8XXA Contact with other sharp object(s), not elsewhere classified, initial encounter
CPT/HCPCS: 12001; 99281; 99282